=== PATIENT | female | born 1940 | race Caucasian/White ===

== ENCOUNTER 2017-02-28 09:48 | Day surgery (SDC) | payer OTHER ==
[~2017-02-28] VITALS: Ht 152.4 cm; Wt 72.6 kg
[~2017-02-28 09:48] MED LIST: ARTHROTEC 751 TABLET PO; ASPIR-LOW81 MG PO; ATORVASTATIN CA40 MG PO; AZITHROMYCIN250 MG PO; BIOTIN 5000MCG PO; BRILINTA90 MG PO; LASIX20 MG PO; LOPRESSOR50 MG PO; LOTREL 5/201 CAPSULE PO; METOPROLOL TART50 MG PO; NEURONTIN300 MG PO; PREVACID 24HR15 MG PO; UROMAG84.5 MG PO; VENLAFAXINE HCL75 M3 PO; VENTOLIN HFA18 GM AEROSOL; VICODIN 5-3001 EACH PO
[2017-02-28 10:20] LABS: HEMATOCRIT 42.5 % (36.0-46.0); MCH 29.7 PG (29.0-34.0); MCV 92.8 FL (83-99); MEAN PLAT.VOLUME 9.1 uM^3 (9.5-12.4); PLATELET COUNT 262 K/uL (156-360); RBC DIS.WIDTH-CV 13.9 % (11.8-14.6); RBC DIS.WIDTH-SD 46.6 % (39-53); RED BLOOD COUNT 4.58 M/uL (3.80-5.20); WHITE BLOOD COUNT 6.8 K/uL (4.1-10.2)
[2017-02-28 10:48] LABS: ANION GAP 9 MEQ/L (2-14); CHLORIDE 106 MEQ/L (99-109); GFR ESTIMATE (CALCULATED) > 59 mL/min/; GLUCOSE 107 mg/dL (70-99); POTASSIUM 4.4 MEQ/L (3.7-5.4); SAMPLE HEMOLYSIS CHECK 0; SAMPLE ICTERIC CHECK 0; SAMPLE LIPEMIA CHECK 0; SODIUM 142 MEQ/L (136-147); UREA NITROGEN (BUN) 20 mg/dL (9-23)
== END 2017-02-28 17:20 | disposition home or self-care (01) ==
LOC: CATH 09:48
PROVIDERS: Internal Medicine Cardiovascular Disease
DX: I25.10 Atherosclerotic heart disease of native coronary artery without angina pectoris (principal); Z95.5 Presence of coronary angioplasty implant and graft; I25.2 Old myocardial infarction; I10 Essential (primary) hypertension; K21.9 Gastro-esophageal reflux disease without esophagitis; M19.90 Unspecified osteoarthritis, unspecified site; Z79.82 Long term (current) use of aspirin
CPT/HCPCS: 80048; 85027; 85347; 93005; C1725; C1769; C1887; J0153; J1644; J2250; J3010; J7050

== ENCOUNTER 2017-09-04 21:29 | Observation (INO) | payer OTHER ==
[~2017-09-04] VITALS: Ht 149.9 cm; Wt 72.1 kg
[2017-09-04 22:17] LABS: HEMATOCRIT 40.2 % (36.0-46.0); MCH 30.4 PG (29.0-34.0); MCHC 33.1 G/DL (30.0-36.0); MCV 91.8 FL (83-99); MEAN PLAT.VOLUME 9.7 uM^3 (9.5-12.4); PLATELET COUNT 224 K/uL (156-360); RBC DIS.WIDTH-CV 13.2 % (11.8-14.6); RBC DIS.WIDTH-SD 44.8 % (39-53); RED BLOOD COUNT 4.38 M/uL (3.80-5.20); WHITE BLOOD COUNT 8.6 K/uL (4.1-10.2)
[2017-09-04 22:25] LABS: CHLORIDE 109 mEq/L (99-109); POTASSIUM 4.2 mEq/L (3.7-5.4); SODIUM 142 mEq/L (136-147)
[2017-09-04 22:27] LABS: GLUCOSE 109 mg/dL (70-99)
[2017-09-04 22:28] LABS: ANION GAP 11 MEQ/L (2-14)
[2017-09-04 22:31] LABS: GFR ESTIMATE (CALCULATED) 33 mL/min/
[2017-09-04 22:32] LABS: UREA NITROGEN (BUN) 28 mg/dL (9-23)
[2017-09-04 22:37] LABS: TROP-I INTERPRETATION NEGATIVE; TROPONIN-I < 0.01 ng/mL (0.0-0.30)
[2017-09-04] MEDS ORDERED: LOPRESSOR25 MG PO (23:23)
[2017-09-04] MEDS ORDERED: ATORVASTATIN CA10 MG PO (23:23)
[2017-09-04] MEDS ORDERED: AMLODIPINE-BEN1 EAC3 PO (23:24)
[2017-09-04] MEDS ORDERED: GABAPENTIN300 MG PO (23:25)
[2017-09-04] MEDS ORDERED: GLUCOSAMINE H1500 MG PO (23:29)
[2017-09-04] MEDS ORDERED: VITAMIN D2000 UNI1 PO (23:34)
[2017-09-04] MEDS ORDERED: FOLIC ACID1 MG PO (23:35)
[2017-09-05 00:33] VITALS: BP 117/55
[2017-09-05 03:37] VITALS: BP 127/60
[2017-09-05 05:50] LABS: TROP-I INTERPRETATION NEGATIVE; TROPONIN-I < 0.01 ng/mL (0.0-0.30)
[2017-09-05 06:00] LABS: HDL CHOLESTEROL 39 MG/DL (Desirable>=50); LDL CHOLESTEROL 49 mg/dL (Desirable<100); NON-HDL CHOLESTEROL 63 mg/dL (Desirable<160); TOTAL CHOLESTEROL 102 mg/dL (Desirable<200); TRIGLYCERIDES 68 MG/DL (Normal: <150)
[2017-09-05 06:49] LABS: Estimated Average Glucose 126 mg/dL (70-123)
[2017-09-05 07:03] VITALS: BP 140/63
[2017-09-05 10:58] LABS: TROP-I INTERPRETATION NEGATIVE; TROPONIN-I < 0.01 ng/mL (0.0-0.30)
[2017-09-05] MEDS ORDERED: IMDUR30 MG PO (11:32)
[2017-09-05] MEDS ORDERED: NITROSTAT0.4 MG SL (11:32)
[2017-09-05 11:51] VITALS: BP 130/60
== END 2017-09-05 12:30 | disposition home or self-care (01) ==
LOC: EME 21:29 → 5WEST 23:23 → EDOF 23:23 → ENRESERV 23:28 → 5WEST 09-05 00:21
PROVIDERS: Physician Assistant Medical
DX: I25.119 Atherosclerotic heart disease of native coronary artery with unspecified angina pectoris (principal); I25.2 Old myocardial infarction; Z95.5 Presence of coronary angioplasty implant and graft; J44.9 Chronic obstructive pulmonary disease, unspecified; E86.0 Dehydration; R73.01 Impaired fasting glucose; E78.5 Hyperlipidemia, unspecified; I10 Essential (primary) hypertension; F32.9 Major depressive disorder, single episode, unspecified; F41.9 Anxiety disorder, unspecified; G62.9 Polyneuropathy, unspecified; I87.8 Other specified disorders of veins; L97.919 Non-pressure chronic ulcer of unspecified part of right lower leg with unspecified severity; L97.929 Non-pressure chronic ulcer of unspecified part of left lower leg with unspecified severity; M79.89 Other specified soft tissue disorders; Z79.82 Long term (current) use of aspirin; Z87.891 Personal history of nicotine dependence; Z82.49 Family history of ischemic heart disease and other diseases of the circulatory system; Z80.1 Family history of malignant neoplasm of trachea, bronchus and lung; Z80.3 Family history of malignant neoplasm of breast
CPT/HCPCS: 71020; 80048; 80061; 83036; 84484; 85027; 93005; 99281; 99284; G0378; J7030

== ENCOUNTER 2018-06-15 19:51 | Emergency (ER) | payer OTHER ==
[~2018-06-15] VITALS: Ht 149.9 cm; Wt 72.6 kg
[~2018-06-15 19:51] MED LIST changes: +AMLODIPINE-BEN1 EAC3 PO; +ATORVASTATIN CA10 MG PO; +FOLIC ACID1 MG PO; +GABAPENTIN300 MG PO; +GLUCOSAMINE H1500 MG PO; +IMDUR30 MG PO; +LOPRESSOR25 MG PO; +NITROSTAT0.4 MG SL; +VITAMIN D2000 UNI1 PO
[2018-06-15] MEDS ORDERED: DOXYCYCLINE MO100 MG PO (20:13)
[2018-06-15 20:32] VITALS: BP 135/66
== END 2018-06-15 21:08 | disposition home or self-care (01) ==
LOC: EME 19:51 → RME 19:51
DX: L03.116 Cellulitis of left lower limb (principal); I10 Essential (primary) hypertension; I25.2 Old myocardial infarction; Z79.82 Long term (current) use of aspirin; Z87.891 Personal history of nicotine dependence
CPT/HCPCS: 99281; 99284